=== PATIENT | female | born 1985 | race Caucasian/White ===

== ENCOUNTER 2024-05-14 10:07 | Inpatient (IN) | payer BC ==
[~2024-05-14 10:07] MED LIST: Iopamidol-370 76% 500 ML MDV (1 ML CHARGE) ONE
[2024-05-14] MEDS ORDERED: methylPREDNISolone Sod Succ/PF 125 MG/2 ML VIAL ONE (10:25)
[2024-05-14] MEDS ORDERED: Ipratropium/Albuterol 3 ML NEB ONE ×2 (10:25→11:08)
[2024-05-14 10:57] LABS: #Basophils 0.03 10x3/uL (0.0-0.2); %Basophils 0.3 % (0.0-1.0); %Eosinophils 0.3 % (0.0-10.0); %Lymphocytes 33.7 % (21.0-51.0); %Monocytes 6.5 % (0.0-10.0); %Neutrophils 58.9 % (42.0-75.0); Hematocrit 42.3 % (36.0-47.0); Mean Corpuscular HGB CONC 35.5 g/dL (32.0-36.0); Mean Corpuscular Hemoglobin 32.1 pg (27.0-31.0); Mean Corpuscular Volume 90.4 fL (78.0-98.0); Mean Platelet Volume 9.8 fL (7.4-10.4); Platelet Count 259 10x3/uL (130-400); RBC Distribution Width 12.8 % (11.5-14.5); Red Blood Cell (RBC) Count 4.68 mill/uL (4.20-5.40)
[2024-05-14 11:04] LABS: ALT (SGPT) 19 U/L (8-55); AST (SGOT) 20 U/L (5-34); Albumin 4.1 g/dL (3.5-5.0); Alkaline Phosphatase 62 U/L (40-110); Anion Gap 13 mmol/L (10-20); BUN (Urea Nitrogen) 9 mg/dL (7.0-18.7); Bilirubin, Total 0.6 mg/dL (0.2-1.2); Calc. Creatinine Clearance 0 mL/min (70-130); Carbon Dioxide 23 mmol/L (22-29); Chloride 108 mmol/L (98-107); Estimated GFR 83; Globulin 3.2 g/dL (2.4-3.5); Glucose 88 mg/dL (70-105); Potassium 3.1 mmol/L (3.5-5.1); Protein, Total 7.3 g/dL (6.0-8.3); Sodium 141 mmol/L (136-145)
[2024-05-14] MEDS ORDERED: Racepinephrine 2.25% 0.5 ML NEB ONE ×3 (11:29→14:10)
[2024-05-14 11:47] LABS: Troponin I Less than 0.010 ng/mL (< 0.028)
[2024-05-14] MEDS ORDERED: Ondansetron ODT 4 MG TAB PO PRN (15:00)
[2024-05-14] MEDS ORDERED: Acetaminophen 325 MG TAB PO PRN (15:00)
[2024-05-14 17:01] VITALS: BMI 19.9
[2024-05-14] MEDS: Dexamethasone 4 mg/ml Vial SLOW IVP SCH (17:25)
[2024-05-15 06:06] LABS: #Basophils Less than 0.03 10x3/uL (0.0-0.2); #Eosinophils Less than 0.03 10x3/uL (0.0-0.7); %Basophils 0.1 % (0.0-1.0); %Monocytes 5.9 % (0.0-10.0); %Neutrophils 79.7 % (42.0-75.0); Hematocrit 38.7 % (36.0-47.0); Hemoglobin 13.9 g/dL (12.0-16.0); Mean Corpuscular HGB CONC 35.9 g/dL (32.0-36.0); Mean Corpuscular Hemoglobin 32.6 pg (27.0-31.0); Mean Corpuscular Volume 90.6 fL (78.0-98.0); Mean Platelet Volume 9.8 fL (7.4-10.4); Platelet Count 289 10x3/uL (130-400); RBC Distribution Width 12.9 % (11.5-14.5); Red Blood Cell (RBC) Count 4.27 mill/uL (4.20-5.40)
[2024-05-15 06:22] LABS: Anion Gap 12 mmol/L (10-20); BUN (Urea Nitrogen) 10 mg/dL (7.0-18.7); Calc. Creatinine Clearance 104 mL/min (70-130); Calcium 9.3 mg/dL (7.8-10.44); Carbon Dioxide 20 mmol/L (22-29); Chloride 110 mmol/L (98-107); Estimated GFR 112; Glucose 111 mg/dL (70-105); Potassium 3.5 mmol/L (3.5-5.1); Sodium 138 mmol/L (136-145)
[2024-05-15] MEDS: Pantoprazole 40 MG VIAL IVP SCH (08:29)
[2024-05-15] MEDS: Enoxaparin 40 MG (0.4 mL) SYRINGE SC SCH (08:29)
[2024-05-15] MEDS: Dexamethasone 10 MG/ML VIAL SLOW IVP SCH (08:29)
[2024-05-15] MEDS ORDERED: Non-Formulary Item 1 EACH (Zonisamide [Zonisamide] 50 MG Capsule) PO SCH (09:00)
[2024-05-15] MEDS ORDERED: Dexamethasone 4 mg/ml Vial SLOW IVP SCH ×2 (09:00)
[2024-05-15] MEDS ORDERED: Dexamethasone 10 MG in Sodium Chloride 0.9% 50 ML IVPB SCH (09:00)
[2024-05-15] MEDS: Zonisamide 25 MG CAP PO SCH (11:01)
[2024-05-15] MEDS: methylPREDNISolone Sod Succ/PF 125 MG/2 ML VIAL IVP SCH (23:20)
[2024-05-16] MEDS: Levothyroxine 150 MCG TAB PO SCH (06:37)
[2024-05-16] MEDS: Racepinephrine 2.25% 0.5 ML NEB NEB SCH ×3 (12:48→22:48)
[2024-05-16] MEDS: methylPREDNISolone Sod Succ/PF 125 MG/2 ML VIAL IVP SCH ×2 (22:53→23:30)
[2024-05-16] MEDS: Lorazepam 2 MG/ML VIAL SLOW IVP SCH (23:40)
[2024-05-17] MEDS: Sodium Chloride 0.9% 500 ML IV SCH (06:08)
[2024-05-17] MEDS: Levothyroxine 150 MCG TAB PO SCH (06:08)
[2024-05-17] MEDS: Lorazepam 2 MG/ML VIAL SLOW IVP SCH (06:08)
[2024-05-17] MEDS: Lorazepam 2 MG/ML VIAL SLOW IVP PRN (16:03)
[2024-05-17] MEDS: Ipratropium/Albuterol 3 ML NEB NEB PRN (20:16)
[2024-05-17] MEDS: methylPREDNISolone Sod Succ 40 MG VIAL IVP SCH ×2 (23:05→23:49)
[2024-05-17] MEDS ORDERED: Racepinephrine 2.25% 0.5 ML NEB ONE (23:45)
[2024-05-17] MEDS: Racepinephrine 2.25% 0.5 ML NEB NEB SCH (23:51)
[2024-05-18] MEDS ORDERED: Lidocaine 1% (PF) 30 ML VIAL ONE (06:12)
[2024-05-18] MEDS ORDERED: EPINEPHrine 1 MG/ML VIAL ONE ×2 (06:12→06:13)
[2024-05-18] MEDS ORDERED: Propofol 1,000 MG/100 ML VIAL IV ONE (06:54)
[2024-05-18] MEDS ORDERED: Glycopyrrolate 0.2 MG/ML 5 ML SYRINGE ONE (07:07)
[2024-05-18] MEDS ORDERED: fentaNYL PF 100 MCG/2 ML SYRINGE ONE (08:35)
[2024-05-18] MEDS ORDERED: Ipratropium/Albuterol 3 ML NEB ONE ×2 (08:50→08:52)
[2024-05-18] MEDS: Dexamethasone Sod Phosphate 20 MG in Sodium Chloride 0.9% 50 ML IVPB SCH (10:10)
[2024-05-18] MEDS: Morphine 2 MG/ML VIAL SLOW IVP PRN (16:12)
[2024-05-18] MEDS: Hydrocodone-Acetamin 15 ML UDCUP PO PRN (17:49)
[2024-05-19 04:16] LABS: #Basophils Less than 0.03 10x3/uL (0.0-0.2); #Eosinophils Less than 0.03 10x3/uL (0.0-0.7); %Basophils 0.1 % (0.0-1.0); %Eosinophils 0.1 % (0.0-10.0); %Lymphocytes 19.6 % (21.0-51.0); %Monocytes 8.7 % (0.0-10.0); %Neutrophils 70.9 % (42.0-75.0); Hematocrit 38.8 % (36.0-47.0); Hemoglobin 13.3 g/dL (12.0-16.0); Mean Corpuscular HGB CONC 34.3 g/dL (32.0-36.0); Mean Corpuscular Volume 93.3 fL (78.0-98.0); Mean Platelet Volume 9.7 fL (7.4-10.4); Platelet Count 239 10x3/uL (130-400); RBC Distribution Width 12.9 % (11.5-14.5); Red Blood Cell (RBC) Count 4.16 mill/uL (4.20-5.40)
[2024-05-19 04:30] LABS: Anion Gap 10 mmol/L (10-20); BUN (Urea Nitrogen) 15 mg/dL (7.0-18.7); Calc. Creatinine Clearance 107 mL/min (70-130); Calcium 8.7 mg/dL (7.8-10.44); Carbon Dioxide 24 mmol/L (22-29); Chloride 108 mmol/L (98-107); Estimated GFR 114; Glucose 98 mg/dL (70-105); Potassium 3.6 mmol/L (3.5-5.1); Sodium 138 mmol/L (136-145)
[2024-05-19] MEDS: Cefdinir 300 MG CAP PO SCH (20:31)
[2024-05-19] MEDS: Zonisamide 25 MG CAP PO SCH (22:22)
[2024-05-20] MEDS: Morphine 2 MG/ML VIAL SLOW IVP SCH (02:10)
[2024-05-20 04:59] LABS: Anion Gap 11 mmol/L (10-20); BUN (Urea Nitrogen) 14 mg/dL (7.0-18.7); Calc. Creatinine Clearance 128 mL/min (70-130); Calcium 8.5 mg/dL (7.8-10.44); Carbon Dioxide 24 mmol/L (22-29); Chloride 106 mmol/L (98-107); Estimated GFR 115; Glucose 97 mg/dL (70-105); Sodium 138 mmol/L (136-145)
[2024-05-20] MEDS: Potassium Chloride 40 MEQ in Premix 1 BAG IVPB SCH (09:17)
[2024-05-20] MEDS: Potassium Chloride 20 MEQ in Premix 1 BAG IVPB SCH (10:15)
[2024-05-21 05:16] LABS: Anion Gap 8 mmol/L (10-20); BUN (Urea Nitrogen) 9 mg/dL (7.0-18.7); Calc. Creatinine Clearance 100 mL/min (70-130); Carbon Dioxide 27 mmol/L (22-29); Chloride 105 mmol/L (98-107); Estimated GFR 108; Glucose 99 mg/dL (70-105); Potassium 3.1 mmol/L (3.5-5.1); Sodium 137 mmol/L (136-145)
[2024-05-21] MEDS: Potassium Chloride 20 MEQ TAB PO SCH (09:33)
[2024-05-21] MEDS ORDERED: Ipratropium/Albuterol 3 ML NEB NEB PRN (18:59)
[2024-05-21] MEDS: Morphine 2 MG/ML VIAL SLOW IVP SCH (21:59)
[2024-05-22 05:21] LABS: Anion Gap 7 mmol/L (10-20); BUN (Urea Nitrogen) 6 mg/dL (7.0-18.7); Calc. Creatinine Clearance 114 mL/min (70-130); Calcium 8.2 mg/dL (7.8-10.44); Carbon Dioxide 24 mmol/L (22-29); Chloride 107 mmol/L (98-107); Estimated GFR 116; Glucose 101 mg/dL (70-105); Potassium 3.3 mmol/L (3.5-5.1); Sodium 135 mmol/L (136-145)
[2024-05-22] MEDS: Potassium Chloride 20 MEQ TAB PO SCH (09:03)
[2024-05-22 15:59] VITALS: BP 147/97; TEMP 98.4
== END 2024-05-22 18:10 | disposition home or self-care (01) | DRG 11 ==
LOC: ERS 10:07 → SUATTDRO 10:07 → SURG B 16:50 → OBSVTOIN 05-15 13:46 → CCU 05-18 07:27 → 2NO 05-19 18:12
PROVIDERS: ADMIT Family Medicine; ATTEND Internal Medicine
PROC: 0B110Z4 Bypass Trachea to Cutaneous, Open Approach (ICD-10-PCS; principal; 2024-05-15)
PROC: 0CJS8ZZ Inspection of Larynx, Via Natural or Artificial Opening Endoscopic (ICD-10-PCS; 2024-05-15)
DX: J38.6 Stenosis of larynx (principal); J96.01 Acute respiratory failure with hypoxia; J34.829 Nasal valve collapse, unspecified; J38.02 Paralysis of vocal cords and larynx, bilateral; T66.XXXA Radiation sickness, unspecified, initial encounter; F41.9 Anxiety disorder, unspecified; J45.20 Mild intermittent asthma, uncomplicated; E03.9 Hypothyroidism, unspecified; E87.6 Hypokalemia; Z85.12 Personal history of malignant neoplasm of trachea; Z79.890 Hormone replacement therapy; Z92.3 Personal history of irradiation; Z79.899 Other long term (current) drug therapy
CPT/HCPCS: 36415; 36416; 70491; 71045; 80048; 80053; 84443; 84484; 85025; 93005; 94640; 96372; 96374; 96375; 96376; G0378; J0171; J1100; J1650; J2060; J2272; J2470; J2704; J2919; J3480; J7030; J7620; Q9967